=== PATIENT | female | born 1940 | race Caucasian/White ===

== ENCOUNTER → 2024-04-29 14:41 | Outpatient (REF) | payer OTHER, SELFPAY | LOC: RAD 14:41 | PROVIDERS: ATTENDING PHYSICIAN Internal Medicine | DX: R60.9 Edema, unspecified (principal) | CPT/HCPCS: 93925 ==

== ENCOUNTER → 2024-10-25 12:41 | Outpatient (REF) | payer OTHER, SELFPAY | LOC: HWRAD 12:41 | PROVIDERS: ATTENDING PHYSICIAN Internal Medicine | DX: R74.8 Abnormal levels of other serum enzymes (principal); R74.01 Elevation of levels of liver transaminase levels; R11.2 Nausea with vomiting, unspecified; R06.02 Shortness of breath | CPT/HCPCS: 71046; 76700 ==

== ENCOUNTER → 2024-11-27 12:14 | Outpatient (REF) | payer OTHER, SELFPAY | LOC: RAD 12:14 | PROVIDERS: ATTENDING PHYSICIAN Internal Medicine | DX: R11.2 Nausea with vomiting, unspecified (principal) | CPT/HCPCS: 74177; Q9967 ==